=== PATIENT | male | born 1975 | race Caucasian/White ===

== ENCOUNTER → 2024-03-02 06:28 | Day surgery (SDC) | payer OTHER, SELFPAY | LOC: GI 06:28 | PROVIDERS: ATTENDING PHYSICIAN Internal Medicine Gastroenterology | DX: Z12.11 Encounter for screening for malignant neoplasm of colon (principal); K64.8 Other hemorrhoids | CPT/HCPCS: G0121 ==

== ENCOUNTER → 2025-04-20 17:35 | Outpatient (REF) | payer OTHER, SELFPAY | LOC: RAD 17:35 | PROVIDERS: ATTENDING PHYSICIAN Nurse Practitioner Family | DX: R51.9 Headache, unspecified (principal); R20.0 Anesthesia of skin | CPT/HCPCS: 70450 ==